=== PATIENT | female | born 1960 | race Caucasian/White ===

== ENCOUNTER 2016-07-19 11:00 | Inpatient (IN) | payer OTHER ==
--- NOTE | ~2016-07-19 | PN ---
Unit #: [id number] #: [id number] Patient: RICHARD BLANCHARD [id number] [facility] [address] [place] [address] [id number] MR#: [id number] NAME: RICHARD BLANCHARD. ROOM: [facility] Age: 55 Sex: F Admission Date: 07/19/2016 : 1960 Attending Physician: Travis Almanza M.D. Admitting Physician: Travis Almanza M.D. Primary Care Physician: Sita Doctor Not In System [facility] PROGRESS NOTES DATE July 22, 2016 DISCUSSION Ms. Blanchard is a 55-year-old white female, who was seen today and chart was reviewed and the case was discussed with the staff. The patient has been anxious, withdrawn, and rather seclusive to herself. Meanwhile, she has been cooperative with the treatment recommendations and she has been taking the medications and tolerating them fairly well with no reported side effects. MENTAL STATUS EXAMINATION Middle-aged white female, who was casually dressed with marginal personal hygiene and appears to be in no acute distress or discomfort. The patient was awake and alert with intact orientation. Her mood was anxious and depressed with a congruent affect. The patient denies any current suicidal or homicidal ideations, and also denies any auditory or visual hallucinations. Her insight and judgment remain slightly impaired. TREATMENT PLAN 1. We will continue her on her current medications and treatment protocol, and will monitor her response to the medications, and make further adjustments as needed. 2. We will continue to followup. Dictated by... Rubén Chris/roberth TD: 07/24/2016 05:16 JOB #: [id number] Unit #: [id number] #: [id number] Patient: RICHARD BLANCHARD [facility] PROGRESS NOTES Page 1 of 1 X Travis Almanza MD PROGRESS NOTE
--- NOTE | ~2016-07-19 | DS ---
Unit #: [id number] #: [id number] Patient: RICHARD BLANCHARD [id number] [facility] [address] [place] [address] [id number] MR#: [id number] NAME: RICHARD BLANCHARD. ROOM: [facility] Age: 56 Sex: F Admission Date: 07/19/2016 : 1960 Discharge Date: 07/23/2016 Attending Physician: Travis Almanza M.D. Primary Care Physician: Generic Doctor Not In System DISCHARGE SUMMARY IDENTIFYING DATA Ms. Blanchard is a 55-year-old white female with history of mood disorder, who was self-referred to the hospital. DISCHARGE DIAGNOSES Psychiatric: Opioid dependence, moderate and acute withdrawals; opioid-induced mood disorder: Medical: Dyslipidemia and gastroesophageal reflux disease. Stressors: Mild psychosocial stressors. HISTORY OF PRESENT ILLNESS Please see initial psychiatric evaluation for details. PAST PSYCHIATRIC HISTORY Please see initial psychiatric evaluation for details. PAST MEDICAL HISTORY Please see initial psychiatric evaluation for details. HOSPITAL COURSE The patient was admitted to the adult chemical dependency unit at [facility] and was oriented to the hospital environment. Routine p.r.n. medications were initiated and she was started back on her home medication and medical detox was initiated and she was also requested to be seen by primary doctor for her diabetes. Meanwhile, she was taking medications regularly and was tolerating them fairly well and was able to come out of the detox without any complications and was wanting to go home and was willing to continue treatment on an outpatient basis and as such, it was decided that she will be discharged home and will continue treatment on an outpatient basis. DISCHARGE CONDITION Stable. PROGNOSIS Fair. Dictated by... Travis Almanza M.D. IAA/modl Unit #: [id number] #: [id number] Patient: RICHARD BLANCHARD TD: 08/13/2016 22:53 JOB #: [id number] DISCHARGE SUMMARY Page 1 of 1 X Travis Almanza MD DISCHARGE SUMMARY
--- NOTE | ~2016-07-19 | PA ---
Unit #: [id number] #: [id number] Patient: RICHARD BLANCHARD [id number] [facility] [address] [place] [address] [id number] MR#: [id number] NAME: RICHARD BLANCHARD. ROOM: P178 Age: 55 Sex: F Admission Date: 07/19/2016 : 1960 Date of Assessment: 07/19/2016 Attending Physician: Travis Almanza M.D. Admitting Physician: Travis Almanza M.D. Primary Care Physician: Generic Doctor Not In System PSYCHIATRIC ASSESSMENT DATE OF SERVICE 07/19/2016. IDENTIFYING DATA Ms. Blanchard is a 55-year-old, single, white female, who is a resident of [place], [place] and was transferred to us from [facility]. CHIEF COMPLAINT "I stopped taking my medications." HISTORY OF PRESENT ILLNESS Ms. Blanchard is a 55-year-old white female with a history of mood disorder, who presented to the emergency room of [facility] in [place], [place], stating that she stopped taking her medications including her Prozac and began new SSRI and that it was prescribed to her by her primary care physician and yesterday she started having thoughts of suicide and started thinking of killing herself and that she has not slept in 2 days and is experiencing multiple uncontrollable crying episodes a day and last night she grabbed a knife from the kitchen with intent to stab herself on her throat and the patient's son took the knife from her and the patient reports immediately looking for a razor blade to cut herself and son secured all the sharp objects and sat with the patient all night long during the uncontrollable crying and no sleep and this morning, the patient had an episode of uncontrollable crying and threatening to kill herself, so son called the EMS and the patient was brought to the emergency room. The patient maintained thoughts of killing herself with a plan to stab herself and as such was medically cleared at [facility] and then, she was transferred to us for safety and stabilization. SUBSTANCE ABUSE HISTORY The patient reports history of cocaine dependence and reports that she has been using up to 3 g of cocaine a day by snorting and IV use with the last use being a couple of days ago. PAST PSYCHIATRIC HISTORY The patient has had a history of psychiatric treatment. Review of the medical records indicate that currently she is on Effexor, but does not appear to be showing therapeutic response to the medications. PAST MEDICAL HISTORY The patient's medical history is significant for hypertension, diabetes mellitus, dyslipidemia. Unit #: [id number] #: [id number] Patient: RICHARD BLANCHARD ALLERGIES Acetaminophen and propoxyphene. PERSONAL AND SOCIAL HISTORY A 55-year-old white female, who reports that she is single and unemployed and lives with her son and has poor social support system. MENTAL STATUS EXAMINATION Middle-aged white female, who was casually dressed with fair personal hygiene, appears to be in no acute distress or discomfort. The patient was awake and alert on interaction with intact orientation to time, place, and person. Her mood was anxious and depressed with a congruent affect. Her speech was slow and restricted in content. Her thought processes were disorganized with some looseness of associations and flight of ideas and suicidal ideations. Her insight and judgment remain significantly impaired. DIAGNOSTIC IMPRESSION Psychiatric: Major depressive disorder, recurrent, moderate, without psychotic features; cocaine dependence, moderate. Medical: Hypertension, diabetes mellitus, dyslipidemia. Stressors: Moderate psychosocial stressors. TREATMENT PLAN 1. The patient has presented with a history of substance abuse and mood disorder, and has been decompensating and will need inpatient hospitalization for detoxification, safety, and stabilization. We will start her back on her home medications. We will adjust the medications and monitor response. 2. Supportive therapy was provided to the patient. 3. Safe, structured, and nourishing environment will be provided. ESTIMATED LENGTH OF STAY 5 to 7 days. ABILITY TO HELP SELF Limited. WILLINGNESS TO HELP SELF The patient appears to be willing to help self. STRENGTHS 1. Communicative. 2. Cooperative. PROBLEMS 1. Chronic dysphoric symptoms. 2. Chronic chemical dependency. 3. Poor social support system. DISCHARGE CRITERIA This will be contingent upon the patient's ability to go through detox without having any significant withdrawal symptoms as well as ability to stay safe to herself, particularly after discharge from the hospital. Unit #: [id number] #: [id number] Patient: RICHARD BLANCHARD Dictated by... Rubén Chris/per TD: 07/20/2016 06:47 JOB #: [id number] PSYCHIATRIC ASSESSMENT Page 1 of 1 X Travis Almanza MD PSYCHIATRIC ASSESSMENT
--- NOTE | ~2016-07-19 | PN ---
Unit #: [id number] #: [id number] Patient: RICHARD BLANCHARD [id number] [facility] [address] [place] [address] [id number] MR#: [id number] NAME: RICHARD BLANCHARD. ROOM: [facility]178 Age: 55 Sex: F Admission Date: 07/19/2016 : 1960 Attending Physician: Travis Almanza M.D. Admitting Physician: Travis Almanza M.D. Primary Care Physician: Generic Doctor Not In System [facility] PROGRESS NOTES DATE OF SERVICE 07/23/2016 DISCUSSION Ms. Blanchard is a 55-year-old white female who was seen today. Chart was reviewed and case was discussed with the staff. She has been anxious, withdrawn, and rather seclusive to herself. Meanwhile, she has been cooperative with the treatment recommendations and has been taking the medications and tolerating them fairly well with no reported side effects. MENTAL STATUS EXAMINATION Middle-aged white female who is casually dressed with fair personal hygiene, appears to be in no acute distress or discomfort. She was awake and alert on interaction with intact orientation. Her mood is anxious with congruent affect. She denies any suicidal or homicidal ideations. Her insight and judgment remain slightly impaired. TREATMENT PLAN 1. We will continue her on her current medications and treatment protocol. We will monitor her response to the medications and make further adjustments as needed. 2. We will continue to follow up. Dictated by... Travis Almanza M.D. IAA/bzg TD: 07/24/2016 08:47 JOB #: [id number] [facility] PROGRESS NOTES Page 1 of 1 X Travis Almanaz MD PROGRESS NOTE
--- NOTE | ~2016-07-19 | PN ---
Unit #: [id number] #: [id number] Patient: RICHARD BLANCHARD [id number] [facility] [address] [place] [address] [id number] MR#: [id number] NAME: RICHARD BLANCHARD. ROOM: [facility]178 Age: 55 Sex: F Admission Date: 07/19/2016 : 1960 Attending Physician: Travis Almanza M.D. Admitting Physician: Travis Almanza M.D. Primary Care Physician: Generic Doctor Not In System [facility] PROGRESS NOTES DATE 07/20/2016 DISCUSSION Ms. Blanchard is a 55-year-old white female with mood disorder who was seen today and chart was reviewed and case was discussed with the staff. She was seen to be anxious, withdrawn, depressed and seclusive to herself with blunted affect and minimal interaction. Meanwhile, she has been taking the medications and tolerating them fairly well with no reported side effects. MENTAL STATUS EXAMINATION Middle-aged white female who was casually dressed with fair personal hygiene and appears to be in no acute distress or discomfort. She was awake and alert on interaction with intact orientation. Her mood was anxious with congruent affect. She denies any suicidal or homicidal ideations and also denies any auditory or visual hallucinations. Her insight and judgement remains slightly impaired. TREATMENT PLAN 1. Will continue on current medications and treatment protocol and will monitor her response and make further adjustments as needed. 2. Will continue to follow up. Dictated by... Rubén Chris/gina TD: 07/21/2016 22:22 JOB #: [id number] Unit #: [id number] #: [id number] Patient: RICHARD BLANCHARD [facility] PROGRESS NOTES Page 1 of 1 X Travis Almanza MD PROGRESS NOTE
--- NOTE | ~2016-07-19 | CO ---
Unit #: [id number] #: [id number] Patient: RICHARD BLANCHARD [id number] [facility] [address] [place] [address] [id number] I MR#: [id number] NAME: RICHARD BLANCHARD. ROOM: [facility] Age: 55 Sex: F Admission Date: 07/19/2016 : 1960 Attending Physician: Travis Almanza M.D. Primary Care Physician: Generic Doctor Not In System Requesting Physician: Travis Almanza M.D. CONSULTATION REPORT Medical consultation ordered by Dr. Almanza for patient with episodes of low blood sugar. SUBJECTIVE "I have been diabetic for about ten years and I have always been on insulin. I have never taken pills. My blood sugars at home are always in the 200s, but probably because I do all the cooking." OBJECTIVE VITAL SIGNS: Within normal limits, noted a range of blood sugars 136, 180, 56, 59, 182, 279. ASSESSMENT Episodes of hypoglycemia. PLAN Will decrease morning Levemir to 20 units, continue Accu-Cheks. Dictated by... Irasema Mora/roberth TD: 07/23/2016 12:07 JOB #: [id number] CONSULTATION REPORT Page 1 of 1 X Monica Graves APR X CONSULTATION REPORT
--- NOTE | ~2016-07-19 | HP ---
Unit #: [id number] #: [id number] Patient: NOHELIA BLANCHARD [id number] [place] [address] [id number] I MR#: [id number] NAME: NOHELIA BLANCHARD. ROOM: P178 Age: 55 Sex: F Admission Date: 07/19/2016 : 1960 Attending Physician: Travis Almanza M.D. Admitting Physician: Travis Almanza M.D. Primary Care Physician: Generic Doctor Not In System HISTORY AND PHYSICAL HISTORY OF PRESENT ILLNESS Nohelia is a 55-year-old female who was admitted to [facility] on 07/19/2016 for suicidal ideation and depression. PAST MEDICAL HISTORY Type 2 diabetes, coronary artery disease, hypertension, and hyperlipidemia. PAST SURGICAL HISTORY Cardiac catheter with stent placement. SOCIAL HISTORY Denies tobacco, alcohol, or illegal drug use. However, per her records her son believes she is using cocaine and IV heroin. She is and living with her son and her boyfriend. FAMILY HISTORY Noncontributory. REVIEW OF SYSTEMS CONSTITUTIONAL: No fever or chills. HEENT: Denies any sore throat, ear pain or runny nose. CARDIOVASCULAR: Denies chest pain, irregular heart rhythm or palpitations. CHEST: Denies shortness of breath or cough. No hemoptysis. GASTROINTESTINAL: Denies nausea, vomiting, diarrhea or chronic constipation. ENDOCRINE: Denies history of increased thirst or urination. No recent significant weight loss or gain. GENITOURINARY: Denies dysuria, frequency, or hematuria. SKIN: Denies any rashes. HEMATOLOGIC: Denies history of increased bleeding or bruising. MUSCULOSKELETAL: Denies any hot, swollen joints. No generalized muscle pain. NEUROLOGIC: Denies problems with vision or speech. No frequent, severe headaches. No numbness, tingling or weakness in any extremities. Denies loss of bladder or bowel control. CURRENT MEDICATIONS Aspirin, Brilinta, Neurontin, Omeprazole, Effexor. ALLERGIES To Tylenol and propoxyphene. PHYSICAL EXAMINATION Unit #: [id number] #: [id number] Patient: NOHELIA BLANCHARD GENERAL: Alert, oriented, no acute distress. VITAL SIGNS: Blood pressure 140/82, heart rate 95, respirations 20, and temperature 99.6. SKIN: Warm, dry. No rashes or lesions, track francis, cuts, etc. HEENT: Normocephalic. TMs not viewed. Oronasal passages clear. Conjunctivae clear. PERRLA. EOM is intact. NECK: No lymphadenopathy or thyromegaly. HEART: Regular rate and rhythm. No murmur, gallop, or rub. LUNGS: Clear to auscultation bilaterally. ABDOMEN: Soft, nontender without palpable masses or hepatosplenomegaly. : Not assessed. EXTREMITIES: No evidence of cyanosis, clubbing, or edema. Moves all extremities independently without obvious deficit. NEUROLOGICAL: Grossly within normal limits. Cranial Nerves: II: Visual harrison are intact. III, IV AND : Extraocular movements are intact. Pupils are equal, round and reactive to light. V: Facial sensation is grossly normal. VII: Facial movements and expression are normal. VIII: Auditory acuity grossly intact. IX, X: Uvula is midline. Phonation is normal. XI: Patient shrugs shoulders and turns head normally. XII: Tongue protrudes in the midline. Sensory and Motor Function: Sensory and motor sensation is grossly normal. Motor: moves all extremities well. Coordination: Gait is normal. Deep Tendon Reflexes: Intact. IMPRESSION 1. Psychiatric admission. 2. Type 2 diabetes. 3. Coronary artery disease. 4. Hypertension. 5. Hyperlipidemia. RECOMMENDATIONS PSYCHIATRIC: Per psychiatrist. MEDICAL: No contraindication to participating in this facility's activities. MEDICAL PROGNOSIS Good. MEDICAL CONDITION Stable. Dictated by... Irasema Sheets TD: 07/21/2016 08:35 JOB #: [id number] Unit #: [id number] #: [id number] Patient: NOHELIA BLANCHARD HISTORY AND PHYSICAL Page 1 of 1 X RAYO MINA APRN X HISTORY AND PHYSICAL
--- NOTE | ~2016-07-19 | PN ---
Unit #: [id number] #: [id number] Patient: RICHARD BLANCHARD [id number] [facility] [address] [place] [address] [id number] MR#: [id number] NAME: RICHARD BLANCHARD. ROOM: [facility] Age: 55 Sex: F Admission Date: 07/19/2016 : 1960 Attending Physician: Travis Almanza M.D. Admitting Physician: Travis Almanza M.D. Primary Care Physician: Sita Doctor Not In System [facility] [employer] NOTES DATE OF SERVICE: 07/21/2016 SUBJECTIVE Ms. Blanchard is a 55-year-old white female with mood disorder, who was seen today and chart was reviewed and case was discussed with the staff, who reports the patient has been having diarrhea. We would like to get some stool cultures done. On approach, the patient is lying in a bed in her room as there is significant odor in her room and she has been unkempt, disheveled, withdrawn, and showing very poor insight into her situation and not being able get a meaningful conversation. Neither has she been able to come out, participate, socialize, or interact. MENTAL STATUS EXAMINATION Middle-aged white female, who was casually dressed with marginal personal hygiene, appears to be in just slight distress and discomfort. The patient was awake and alert with impaired attention and concentration. Her mood was anxious with a congruent affect. She denies any suicidal or homicidal ideation. Her insight and judgment remain slightly impaired. TREATMENT PLAN 1. We will continue her on her current medications and treatment protocol. We will monitor her response to medications and make further adjustments as needed. 2. We will continue to follow up. Dictated by... Travis Almanza M.D. IAA/modl TD: 07/23/2016 06:56 JOB #: [id number] Unit #: [id number] #: [id number] Patient: RICHARD BLANCHARD [facility] NOTES Page 1 of 1 X Cami,Travis Mackey MD X PROGRESS NOTE
[2016-07-20 10:39] LABS: AMPHETAMINE NEG (NEG); BARBITURATES NEG (NEG); BENZODIAZEPINES NEG (NEG); COCAINE POS (NEG); MARIJUANA NEG (NEG); OPIATES POS (NEG); TRICYCLIC ANTIDEPRESSANTS NEG (NEG); U METHADONE NEG (NEG)
== END 2016-07-23 15:45 | disposition home or self-care (01) | DRG 885 ==
LOC: P1E 15:39
PROVIDERS: Psychiatry & Neurology Psychiatry
DX: F33.1 Major depressive disorder, recurrent, moderate (principal); E11.649 Type 2 diabetes mellitus with hypoglycemia without coma; R45.851 Suicidal ideations; F11.20 Opioid dependence, uncomplicated; I25.10 Atherosclerotic heart disease of native coronary artery without angina pectoris; I10 Essential (primary) hypertension; E78.5 Hyperlipidemia, unspecified; Z88.6 Allergy status to analgesic agent; Z88.8 Allergy status to other drugs, medicaments and biological substances; Z79.4 Long term (current) use of insulin
CPT/HCPCS: 80307; 82947; 86592; 87045; 87427; 87899